=== PATIENT | female | born 1990 | race Caucasian/White ===

== ENCOUNTER 2018-01-18 03:52 | Emergency (ER) | END 2018-01-18 04:22 | disposition home or self-care (01) ==

== ENCOUNTER 2018-06-11 22:59 | Emergency (ER) | payer OTHER ==
[~2018-06-11] VITALS: Ht 160 cm; Wt 113.9 kg
[~2018-06-11 22:59] MED LIST: NPH10OT LEFT EAR
[2018-06-11 23:05] VITALS: BP 134/79; PULSE 83; RESP 18; Ht 160 cm; Wt 113.9 kg
[2018-06-11] MEDS ORDERED: ACET500T98 PO (23:58)
[2018-06-11] MEDS ORDERED: D-ME118S24 PO (23:58)
[2018-06-11] MEDS ORDERED: AMOX1TAB10 PO (23:58)
[2018-06-11] MEDS ORDERED: IBUP-1542 PO (23:58)
--- NOTE | 2018-06-12 00:05 | ERD ---
ER Documentation Chief Complaint Chief Complaint left earache/sore throat x 1 week ROS All systems reviewed and are negative except as per history of present illness. Medications Home Meds Active Scripts D-Methorphan Hb/P-Epd HCl/Bpm (Jblfbhopdo-Leoijdmiuqi-Ft Syr) 118 Ml Syrup, 5 ML PO Q4H PRN for COUGH for 7 Days, #1 BOTTLE Prov:RADHA DE ANDA DO 06/11/18 Amoxicillin/Potassium Clav (Amox-Clav 875-125 mg Tablet) 875-125 mg Tab, 1 TAB PO BID for ear infection for 5 Days, #10 TAB Prov:RADHA DE ANDA DO 06/11/18 Acetaminophen (Acetaminophen) 500 Mg Tablet, 500 MG PO Q6H PRN for pin, #30 TAB Prov:RADHA DE ANDA DO 06/11/18 Ibuprofen* (Motrin*) 600 Mg Tab, 600 MG PO Q6H PRN for PAIN AND OR ELEVATED TEMP, #30 TAB Prov:RADHA DE ANDA DO 06/11/18 Neomycin/Polymyxin/Hydrocort* (Cortisporin* Otic) 10 Ml Susp, 4 DROP LEFT EAR QID for 7 Days, EA Prov:PARVEEN PRICE PA-C 01/18/18 Allergies Allergies: Coded Allergies: No Known Allergy (Unverified , 01/18/18) PMhx/Soc Medical and Surgical Hx: pt denies Medical Hx, pt denies Surgical Hx Hx Alcohol Use: No Hx Substance Use: No Hx Tobacco Use: No Smoking Status: Never smoker Physical Exam Vitals Vital Signs Date Temp Pulse Resp B/P (MAP) Pulse Ox O2 O2 Flow FiO2 Time Delivery Rate 06/11/18 98.2 83 18 134/79 96 23:05 (97) Physical Exam Const: No acute distress Head: Atraumatic Eyes: Normal Conjunctiva ENT: Normal External Ears, Nose and Mouth. Neck: Full range of motion. No meningismus. Resp: Clear to auscultation bilaterally Cardio: Regular rate and rhythm, no murmurs Abd: Soft, non tender, non distended. Normal bowel sounds Skin: No petechiae or rashes Back: No midline or flank tenderness Ext: No cyanosis, or edema Neur: Awake and alert Psych: Normal Mood and Affect Departure Diagnosis: Primary Impression: URI (upper respiratory infection) URI type: unspecified URI Qualified Codes: J06.9 - Acute upper respiratory infection, unspecified Additional Impression: Left ear pain Condition: Fair Patient Instructions: Common Middle Ear Problems, Preventing Common Respiratory Infections Referrals: [facility] YOU HAVE RECEIVED A MEDICAL SCREENING EXAM AND THE RESULTS INDICATE THAT YOU DO NOT HAVE A CONDITION THAT REQUIRES URGENT TREATMENT IN THE EMERGENCY DEPARTMENT. FURTHER EVALUATION AND TREATMENT OF YOUR CONDITION CAN WAIT UNTIL YOU ARE SEEN IN YOUR DOCTORS OFFICE WITHIN THE NEXT 1-2 DAYS. IT IS YOUR RESPONSIBILITY TO MAKE AN APPOINTMENT FOR FOLOW-UP CARE. IF YOU HAVE A PRIMARY DOCTOR --you should call your primary doctor and schedule an appointment IF YOU DO NOT HAVE A PRIMARY DOCTOR YOU CAN CALL OUR PHYSICIAN REFERRAL HOTLINE AT IF YOU CAN NOT AFFORD TO SEE A PHYSICIAN YOU CAN CHOSE FROM THE FOLLOWING [facility] [address] [facility] [facility] [address]. [facility] [address] [address]. [facility] [address] [facility] [address] [facility]. [facility] [address] [facility]. [facility] [address] Additional Instructions: Call your primary care doctor TOMORROW for an appointment during the next 1-2 days.See the doctor sooner or return here if your condition worsens before your appointment time. RADHA DE ANDA DO Jun 12, 2018 00:05
== END 2018-06-12 00:11 | disposition home or self-care (01) ==
LOC: FTE 22:59
DX: H92.02 Otalgia, left ear (principal); J06.9 Acute upper respiratory infection, unspecified
CPT/HCPCS: 99283

== ENCOUNTER 2018-08-03 23:07 | Emergency (ER) | payer OTHER ==
[~2018-08-03] VITALS: Ht 160 cm; Wt 113.0 kg
[~2018-08-03 23:07] MED LIST changes: +ACET500T98 PO; +AMOX1TAB10 PO; +D-ME118S24 PO; +IBUP-1542 PO
[2018-08-03 23:15] VITALS: BP 161/77; PULSE 103; RESP 18; Ht 160 cm; Wt 113.0 kg
[2018-08-03] MEDS ORDERED: KETOROLAC 60 MG INJ IM STA (23:34)
[2018-08-03] MEDS ORDERED: D-ME473S2 PO (23:57)
[2018-08-03] MEDS ORDERED: CETI10TA19 PO (23:57)
[2018-08-03] MEDS ORDERED: IBUP800T48 PO (23:57)
[2018-08-03] MEDS ORDERED: FLUT16SP17 NASAL (23:57)
[2018-08-03] MEDS ORDERED: [UNRECOGNIZED DRUG - CODE] PO (23:57)
[2018-08-04] MEDS ORDERED: GUAIFENESIN LA 600 MG TABSR PO ONE
[2018-08-04] MEDS ORDERED: PROMETHAZINE/CODEINE 5ML CUP PO ONE
[2018-08-04] MEDS ORDERED: DEXAMETHASONE 10 MG/ML 1 ML INJ IM ONE
--- NOTE | 2018-08-04 17:04 | ERD ---
ER Documentation Chief Complaint Chief Complaint ST WITH COUGH AND POST NASAL DRIP [id number] HPI History of Present Illness: 27-year-old female who denies a past medical history coming in today with complaint of sore throat, productive cough with green/white sputum, postnasal drip. Cough symptoms has been present for 5 days, sore throat and postnasal drip have been present for 1 week. Associated symptoms includes a lymph node pain. At home pharmacological/nonpharmacological treatment for symptoms: Sudafed at 5 PM Denies social concerns; Denies recent foreign travel ROS All systems reviewed and are negative except as per history of present illness. Medications Home Meds Active Scripts Dextromethorphan Hb-Promethazine Hcl* (Promethazine DM* Syrup) 473 Ml Syrup, 5 ML PO Q6 PRN for COUGH, #120 ML Prov:RICHAR HERNANDEZ NP 08/03/18 Guaifenesin (Guaifenesin) 1,200 Mg Tab.er.12h, 1200 MG PO BID PRN for MUCUS/CHEST CONGESTION for 7 Days, #30 TAB Prov:RICHAR HERNANDEZ NP 08/03/18 Cetirizine Hcl* (Cetirizine Hcl*) 10 Mg Tablet, 10 MG PO DAILY for ALLERGIES/RUNNY NOSE/COUGH, #30 TAB Prov:RICHRA HERNANDEZ NP 08/03/18 Fluticasone Propionate* (Fluticasone Propionate* Nasal) 50 Mcg/Jewell - 16 Gm Jewell.susp, 1 SPRAY NASAL DAILY PRN for NASAL CONGESTION, #1 BOTTLE TO EACH NOSTRIL Prov:RICHAR HERNANDEZ NP 08/03/18 Ibuprofen* (Motrin*) 800 Mg Tab, 800 MG PO Q6H PRN for PAIN AND OR ELEVATED TEMP, #30 TAB Prov:RICHAR HERNANDEZ NP 08/03/18 D-Methorphan Hb/P-Epd HCl/Bpm (Tqlyryutni-Zzylbxyehoj-Ee Syr) 118 Ml Syrup, 5 ML PO Q4H PRN for COUGH for 7 Days, #1 BOTTLE Prov:RADHA DE ANDA DO 06/11/18 Amoxicillin/Potassium Clav (Amox-Clav 875-125 mg Tablet) 875-125 mg Tab, 1 TAB PO BID for ear infection for 5 Days, #10 TAB Prov:RADHA DE ANDA DO 06/11/18 Acetaminophen (Acetaminophen) 500 Mg Tablet, 500 MG PO Q6H PRN for pin, #30 TAB Prov:RADHA DE ANDA DO 06/11/18 Ibuprofen* (Motrin*) 600 Mg Tab, 600 MG PO Q6H PRN for PAIN AND OR ELEVATED TEMP, #30 TAB Prov:RADHA DE ANDA DO 06/11/18 Neomycin/Polymyxin/Hydrocort* (Cortisporin* Otic) 10 Ml Susp, 4 DROP LEFT EAR QID for 7 Days, EA Prov:PARVEEN PRICE PA-C 01/18/18 Allergies Allergies: Coded Allergies: No Known Allergy (Unverified , 01/18/18) PMhx/Soc Medical and Surgical Hx: pt denies Medical Hx, pt denies Surgical Hx Hx Alcohol Use: No Hx Substance Use: No Hx Tobacco Use: No Smoking Status: Never smoker FmHx Family History: diabetes Physical Exam Vitals Vital Signs Date Temp Pulse Resp B/P (MAP) Pulse Ox O2 O2 Flow FiO2 Time Delivery Rate 08/03/18 98.1 103 18 161/77 99 23:15 (105) Physical Exam Const: No acute distress, afebrile Head: Atraumatic tenderness to palpation to maxillary sinuses, Eyes: Normal Conjunctiva ENT: Normal External Ears, Nose and Mouth. Oropharynx clear without erythema, 2+ tonsils without exudate. Postnasal drainage noted. Neck: Full range of motion. No meningismus. Left cervical lymphadenopathy Resp: Clear to auscultation bilaterally Cardio: Regular rate and rhythm, no murmurs Abd: Soft, non tender, non distended. No guarding, no masses, no rigidity Skin: No petechiae or rashes Back: No midline or flank tenderness Ext: No cyanosis, or edema Neur: Awake and alert x3, speaking in clear sentences, no focal deficits or facial asymmetry Psych: Normal Mood and Affect Results 24 hrs Laboratory Tests Test 08/03/18 23:50 POC Beta HCG, Qualitative NEGATIVE Current Medications Medications Dose Sig/Dwayne Start Time Status Last (Trade) Ordered Route PRN Stop Time Admin Dose Reason Admin 10 mg ONCE ONCE 08/04/18 DC 08/03/18 Dexamethasone IM 00:00 23:58 (Decadron) 08/04/18 00:01 Promethazine 10 ml ONCE ONCE 08/04/18 DC 08/03/18 HCl/ PO 00:00 23:58 Codeine 08/04/18 00:01 (Phenergan/ Codeine) Guaifenesin 1,200 mg ONCE ONCE 08/04/18 DC 08/03/18 (Mucinex) PO 00:00 23:58 08/04/18 00:01 Ketorolac 60 mg ONCE STAT 08/03/18 DC 08/03/18 Tromethamine IM 23:34 23:58 (Toradol) 08/03/18 23:37 Procedures/MDM ED course includes a thorough examination and history. Medications: Dexamethasone, ketorolac, promethazine/codeine, guaifenesin Imaging: Labs: Urine Low suspicion for life-threatening medical emergency. Low suspicion for infectious process that requires antibiotics at this time. Patient is afebrile without antipyretics. In the event of acute sinusitis, symptoms have been not present for 10 days to have a suspicion for bacterial sinusitis. Otherwise healthy patient presenting with constellation of symptoms likely representing uncomplicated maxillary sinusitis, viral syndrome as characterized by history, physical exam findings lab findings. Urine negative Patient reassessment 0000: Patient medicated as ordered. Patient hemodynamically stable. No respiratory distress, otherwise relatively well appearing and nontoxic. Disposition given. Patient educated on diagnoses, prescriptions, follow-up care, return precautions. Strict return precautions given for worsening condition; questions answered discharge. Patient verbalizes understanding of plan of care as well as follow-up and return precautions. Disposition for discharge with followup in 2 days with PCP/clinic. Departure Diagnosis: Primary Impression: Maxillary sinusitis, acute Recurrence: not specified as recurrent Qualified Codes: J01.00 - Acute maxillary sinusitis, unspecified Additional Impression: Viral syndrome Condition: Stable Patient Instructions: Sinusitis, No Abx, Viral Syndrome (Adult) Referrals: COMMUNITY CLINICS YOU HAVE RECEIVED A MEDICAL SCREENING EXAM AND THE RESULTS INDICATE THAT YOU DO NOT HAVE A CONDITION THAT REQUIRES URGENT TREATMENT IN THE EMERGENCY DEPARTMENT. FURTHER EVALUATION AND TREATMENT OF YOUR CONDITION CAN WAIT UNTIL YOU ARE SEEN IN YOUR DOCTORS OFFICE WITHIN THE NEXT 1-2 DAYS. IT IS YOUR RESPONSIBILITY TO MAKE AN APPOINTMENT FOR FOLOW-UP CARE. IF YOU HAVE A PRIMARY DOCTOR --you should call your primary doctor and schedule an appointment IF YOU DO NOT HAVE A PRIMARY DOCTOR YOU CAN CALL OUR PHYSICIAN REFERRAL HOTLINE AT IF YOU CAN NOT AFFORD TO SEE A PHYSICIAN YOU CAN CHOSE FROM THE FOLLOWING COMMUNITY CLINICS [facility] [address] [facility] [address] [facility] [address] [facility] [address] [facility]. [facility] [address] [facility]. [facility] [address] [facility]. [facility] YOU HAVE RECEIVED A MEDICAL SCREENING EXAM AND THE RESULTS INDICATE THAT YOU DO NOT HAVE A CONDITION THAT REQUIRES URGENT TREATMENT IN THE EMERGENCY DEPARTMENT. FURTHER EVALUATION AND TREATMENT OF YOUR CONDITION CAN WAIT UNTIL YOU ARE SEEN IN YOUR DOCTORS OFFICE WITHIN THE NEXT 1-2 DAYS. IT IS YOUR RESPONSIBILITY TO MAKE AN APPOINTMENT FOR FOLOW-UP CARE. IF YOU HAVE A PRIMARY DOCTOR --you should call your primary doctor and schedule and appointment IF YOU DO NOT HAVE A PRIMARY DOCTOR YOU CAN CALL OUR PHYSICIAN REFERRAL HOTLINE AT . IF YOU CAN NOT AFFORD TO SEE A PHYSICIAN YOU CAN CHOSE FROM THE FOLLOWING [facility] INSTITUTIONS: [facility] [address] [place] [address] [facility] [address] [place] [address] [facility] [address] [place] [address] Additional Instructions: Thank you very much for allowing us to participate in your care. Your health and safety is our top priority at [facility]. It is important to read all discharge instructions and education provided in your discharge packet. Call your primary care doctor TOMORROW for an appointment during the next 2-4 days and bring all the information and medications prescribed. Have prescriptions filled and follow precisely the directions on the label. -Cetirizine as an antihistamine that should not cause drowsiness; take this medication every day for allergy-like symptoms/cough/runny nose. -Ibuprofen is a medication that will help with pain/inflammation. At the dosage of 600 to 800 mg, this will help with inflammation/swelling. Take this medication as prescribed. -Fluticasone Is a Steroid Nose Jewell for the Nose; Use This Every Day for Stuffy Nose/Nasal Congestion. -Guaifenesin is a mucolytic. This medication will help loosen secretions and cough them up. -Dextromethorphan/promethazine is a cough suppressant as well as antihistamine. Take this medication as needed for cough and allergy-like symptoms including postnasal drip (clearing of throat) and runny nose. This medication may cause drowsiness. If the symptoms get worse and your provider is unavailable, return to the Emergency Department immediately. RICHAR HERNANDEZ NP Aug 04, 2018 17:04
== END 2018-08-04 00:05 | disposition home or self-care (01) ==
LOC: FTE 23:07
DX: J01.00 Acute maxillary sinusitis, unspecified (principal); B34.9 Viral infection, unspecified
CPT/HCPCS: 81025; 96372; J1100; J1885; Z7502; Z7610

== ENCOUNTER 2018-09-16 17:42 | Emergency (ER) | payer OTHER ==
[~2018-09-16] VITALS: Ht 160 cm; Wt 111.7 kg
[~2018-09-16 17:42] MED LIST changes: +BEN25 PO; +CETI10TA19 PO; +D-ME473S2 PO; +FLUT16SP17 NASAL; +IBUP800T48 PO; +LORA-441 PO; +NPH10OT RIGHT EAR; +PRED20TA PO; +[UNRECOGNIZED DRUG - CODE] PO
[2018-09-16 17:44] VITALS: Ht 160 cm; Wt 111.7 kg
[2018-09-16] MEDS ORDERED: LORAZEPAM 2 MG INJ IM ONE (18:30)
--- NOTE | 2018-09-16 18:31 | ERD ---
ER Documentation Chief Complaint Chief Complaint anxiety/panic attack HPI Patient is a 28 years old female with past medical history of anxiety presenting to the clinic for sudden onset panic attack that started 1 hour ago. Patient admits to recent stress that has accumulated and is now experiencing palpitation, shortness of breath, difficulty breathing, twitching of the eyes, and a sensation of grave danger. Patient admits that she has fell out of healthcare since 1 year ago when her insurance switched. Reports she has not been on Valium for over a year without any issues. Patient reports her new insurance kicked in and is waiting for a PCP appointment. ROS All systems reviewed and are negative except as per history of present illness. Medications Home Meds Active Scripts Lorazepam* (Ativan*) 0.5 Mg Tablet, 0.5 MG PO Q8H PRN for ANXIETY, #6 TAB Prov:TIP MONTELONGO PA-C 09/16/18 Dextromethorphan Hb-Promethazine Hcl* (Promethazine DM* Syrup) 473 Ml Syrup, 5 ML PO Q6 PRN for COUGH, #120 ML Prov:RICHAR HERNANDEZ NP 08/03/18 Guaifenesin (Guaifenesin) 1,200 Mg Tab.er.12h, 1200 MG PO BID PRN for MUCU S/CHEST CONGESTION for 7 Days, #30 TAB Prov:RICHAR HERNANDEZ NP 08/03/18 Cetirizine Hcl* (Cetirizine Hcl*) 10 Mg Tablet, 10 MG PO DAILY for ALLERGIES/RUNNY NOSE/COUGH, #30 TAB Prov:RICHAR HERNANDEZ NP 08/03/18 Fluticasone Propionate* (Fluticasone Propionate* Nasal) 50 Mcg/Babb - 16 Gm Babb.susp, 1 SPRAY NASAL DAILY PRN for NASAL CONGESTION, #1 BOTTLE TO EACH NOSTRIL Prov:RICHAR HERNANDEZ NP 08/03/18 Ibuprofen* (Motrin*) 800 Mg Tab, 800 MG PO Q6H PRN for PAIN AND OR ELEVATED TEMP, #30 TAB Prov:RICHAR HERNANDEZ NP 08/03/18 D-Methorphan Hb/P-Epd HCl/Bpm (Uhqzgscpvq-Obumbdylpia-Gv Syr) 118 Ml Syrup, 5 ML PO Q4H PRN for COUGH for 7 Days, #1 BOTTLE Prov:RADHA DE ANDA DO 06/11/18 Amoxicillin/Potassium Clav (Amox-Clav 875-125 mg Tablet) 875-125 mg Tab, 1 TAB PO BID for ear infection for 5 Days, #10 TAB Prov:RADHA DE ANDA DO 06/11/18 Acetaminophen (Acetaminophen) 500 Mg Tablet, 500 MG PO Q6H PRN for pin, #30 TAB Prov:RADHA DE ANDA DO 06/11/18 Ibuprofen* (Motrin*) 600 Mg Tab, 600 MG PO Q6H PRN for PAIN AND OR ELEVATED TEMP, #30 TAB Prov:RADHA DE ANDA DO 06/11/18 Neomycin/Polymyxin/Hydrocort* (Cortisporin* Otic) 10 Ml Susp, 4 DROP LEFT EAR QID for 7 Days, EA Prov:PARVEEN PRICE PA-C 01/18/18 Allergies Allergies: Coded Allergies: No Known Allergy (Unverified , 01/18/18) PMhx/Soc History of Surgery: No Anesthesia Reaction: No Hx Neurological Disorder: No Hx Respiratory Disorders: No Hx Cardiac Disorders: No Hx Psychiatric Problems: No Hx Miscellaneous Medical Probl: No Hx Alcohol Use: No Hx Substance Use: No Hx Tobacco Use: No FmHx Family History: diabetes Physical Exam Vitals Vital Signs Date Temp Pulse Resp B/P (MAP) Pulse Ox O2 O2 Flow FiO2 Time Delivery Rate 09/16/18 98.3 102 22 145/79 98 17:44 (101) Physical Exam Const: Patient is a mild distress crying. Head: Atraumatic Eyes: Normal Conjunctiva Resp: Clear to auscultation bilaterally Cardio: Regular rate and rhythm, no murmurs Psych: Normal Mood and Affect Results 24 hrs Current Medications Medications Dose Sig/Dwayne Start Time Status Last (Trade) Ordered Route PRN Stop Time Admin Dose Reason Admin Lorazepam 0.5 mg ONCE ONCE 09/16/18 DC 09/16/18 (Ativan) IM 18:30 18:30 09/16/18 18:31 Procedures/MDM Patient was seen and evaluated for anxiety without complications. Patient has an unremarkable physical exam. Low suspicion of pneumonia; no imaging required for today's visit. Patient was given Ativan 0.5mg IM in ED with significant improve ment of symptoms. Post Ativan administration, patient was calm and collective. EKG: Rate/Rhythm: Normal Sinus Rhythm QRS, ST, T-waves: No changes consistent w/ acute ischemia Impression: No evidence of ischemia or arrhythmia Patient stable ready for discharge. Patient was advised to follow-up with her PCP for further evaluation. Departure Diagnosis: Primary Impression: Anxiety attack Condition: Stable Patient Instructions: Panic Attack Referrals: [facility] Additional Instructions: Patient advised to return to the ED immediately for new or worsening symptoms. Patient advised to follow up with primary care provider in the next 24-48 hours. Patient verbalized understanding and agrees with treatment plan and course of action. If patient has no primary care they may follow up with [facility] + [facility] [address] [place] [id number] or [facility] [address] [place] [address] or [facility] [address] [place] [address] TIP MONTELONGO PA-C Sep 16, 2018 18:31
[2018-09-16 19:06] VITALS: BP 117/78; PULSE 95; RESP 18
== END 2018-09-16 19:07 | disposition home or self-care (01) ==
LOC: FTE 17:42
DX: F41.9 Anxiety disorder, unspecified (principal); R00.2 Palpitations
CPT/HCPCS: 93005; J2060; 96372

== ENCOUNTER 2018-10-02 23:07 | Emergency (ER) | payer OTHER ==
[~2018-10-02] VITALS: Ht 160 cm; Wt 111.7 kg
[~2018-10-02 23:07] MED LIST changes: +HYDR-3029 PO; +TRIA60LO10 TOP
[2018-10-02 23:10] VITALS: Ht 160 cm; Wt 111.7 kg
[2018-10-03] MEDS ORDERED: predniSONE 20 MG TAB PO ONE
[2018-10-03 00:21] VITALS: BP 113/78; PULSE 78; RESP 16
== END 2018-10-03 00:22 | disposition home or self-care (01) ==
LOC: FTE 23:07
DX: R21 Rash and other nonspecific skin eruption (principal)
CPT/HCPCS: 99283; J7512

== ENCOUNTER 2018-10-07 09:29 | Emergency (ER) | payer OTHER ==
[~2018-10-07] VITALS: Ht 165.1 cm; Wt 110.7 kg
[~2018-10-07 09:29] MED LIST changes: -HYDR-3029 PO; -TRIA60LO10 TOP
[2018-10-07 09:32] VITALS: BP 126/75; PULSE 91; RESP 20; Ht 165.1 cm; Wt 110.7 kg
[2018-10-07] MEDS ORDERED: IBUPROFEN 600 MG TAB PO ONE (10:00)
--- NOTE | 2018-10-07 10:12 | ERD ---
ER Documentation Chief Complaint Chief Complaint sharp right ear pain x1 days HPI This is a 28-year-old female presents to the ED complaining of sharp right ear pain since yesterday. Pain has been getting progressively worse and is nonradiating towards the right side of her face. Reports associated muffled hearing. No trauma. No discharge. No fevers or chills. No recent swimming. She states she has a history of recurrent otitis externa which she was last treated for approximately 4 months ago. No significant past medical history. ROS All systems reviewed and are negative except as per history of present illness. Medications Home Meds Active Scripts Neomycin/Polymyxin/Hydrocort* (Cortisporin* Otic) 10 Ml Susp, 4 DROP RIGHT EAR QID for 10 Days, #1 EA Prov:KITTY MARINO PA-C 10/07/18 Ibuprofen* (Motrin*) 600 Mg Tab, 600 MG PO Q6H PRN for PAIN AND OR ELEVATED TEMP, #30 TAB Prov:KITTY MARINO PA-C 10/07/18 Diphenhydramine Hcl* (Benadryl*) 25 Mg Cap, 25 MG PO Q6 PRN for ITCHING/RASH, #30 TAB Prov:CASS HOFFMAN PA-C 10/02/18 Prednisone* (Prednisone*) 20 Mg Tab, 60 MG PO DAILY for 5 Days, TAB Prov:CASS HOFFMAN PA-C 10/02/18 Lorazepam* (Ativan*) 0.5 Mg Tablet, 0.5 MG PO Q8H PRN for ANXIETY, #6 TAB Prov:TIP MONTELONGO PA-C 09/16/18 Dextromethorphan Hb-Promethazine Hcl* (Promethazine DM* Syrup) 473 Ml Syrup, 5 ML PO Q6 PRN for COUGH, #120 ML Prov:RICHAR HERNANDEZ NP 08/03/18 Guaifenesin (Guaifenesin) 1,200 Mg Tab.er.12h, 1200 MG PO BID PRN for MUCUS/CHEST CONGESTION for 7 Days, #30 TAB Prov:RICHAR HERNANDEZ NP 08/03/18 Cetirizine Hcl* (Cetirizine Hcl*) 10 Mg Tablet, 10 MG PO DAILY for ALLERGIES/ RUNNY NOSE/COUGH, #30 TAB Prov:RICHAR HERNANDEZ V [employer] OPERATOR 08/03/18 Fluticasone Propionate* (Fluticasone Propionate* Nasal) 50 Mcg/[place] - 16 Gm [place].susp, 1 SPRAY NASAL DAILY PRN for NASAL CONGESTION, #1 BOTTLE TO EACH NOSTRIL Prov:RICHAR HERNANDEZ V [employer] KIL[employer] OPERATOR 08/03/18 Ibuprofen* (Motrin*) 800 Mg Tab, 800 MG PO Q6H PRN for PAIN AND OR ELEVATED TEMP, #30 TAB Prov:RICHAR HERNANDEZ V LIME SLUDGE KILN OPERATOR 08/03/18 D-Methorphan Hb/P-Epd HCl/Bpm (Fdvnwxauth-Kpfdjiilhjc-Sy Syr) 118 Ml Syrup, 5 ML PO Q4H PRN for COUGH for 7 Days, #1 BOTTLE Prov:RADHA DE ANDA 06/11/18 Amoxicillin/Potassium Clav (Amox-Clav 875-125 mg Tablet) 875-125 mg Tab, 1 TAB PO BID for ear infection for 5 Days, #10 TAB Prov:ADILSONRADHA 06/11/18 Acetaminophen (Acetaminophen) 500 Mg Tablet, 500 MG PO Q6H PRN for pin, #30 TAB Prov:RADHA DE ANDA 06/11/18 Ibuprofen* (Motrin*) 600 Mg Tab, 600 MG PO Q6H PRN for PAIN AND OR ELEVATED TEMP, #30 TAB Prov:RADHA DE ANDA 06/11/18 Neomycin/Polymyxin/Hydrocort* (Cortisporin* Otic) 10 Ml Susp, 4 DROP LEFT EAR QID for 7 Days, EA Prov:PARVEEN PRICE PA-C 01/18/18 Allergies Allergies: Coded Allergies: hydroxychloroquine (Unverified Allergy, Unknown, 10/07/18) PMhx/Soc Medical and Surgical Hx: pt denies Surgical Hx History of Surgery: No Anesthesia Reaction: No Hx Neurological Disorder: No Hx Respiratory Disorders: No Hx Cardiac Disorders: No Hx Psychiatric Problems: Yes (Anxiety, depression) Hx Miscellaneous Medical Probl: No Hx Alcohol Use: No Hx Substance Use: No Hx Tobacco Use: No Smoking Status: Never smoker Physical Exam Vitals Vital Signs Date Temp Pulse Resp B/P (MAP) Pulse Ox O2 O2 Flow FiO2 Time Delivery Rate 10/07/18 97.1 91 20 126/75 97 09:32 (92) Physical Exam Const: No acute distress Head: Atraumatic Eyes: Normal Conjunctiva ENT: + Right external auditory canal edematous and erythematous, pain with mid ablation of the pinna. No mastoid tenderness. TM nonerythematous and nonbulging with good cone of light reflex, no perforation visualized. Left TM and external auditory canal normal. Neck: Full range of motion. No meningismus. Neur: Awake and alert Psych: Normal Mood and Affect Results 24 hrs Current Medications Medications Dose Sig/Dwayne Start Time Status Last (Trade) Ordered Route PRN Stop Time Admin Dose Reason Admin Ibuprofen 600 mg ONCE ONCE 10/07/18 DC (Motrin) PO 10:00 10/07/18 10:01 Procedures/MDM ED COURSE: The patient was given ibuprofen 600 mg The medication was well tolerated and the patient had market improvement in symptoms. The patient remained stable throughout ED course. MEDICAL DECISION MAKIN-year-old otherwise healthy female presents with sharp right ear pain. Physical exam is consistent with acute otitis externa. There is no evidence of malignant malignant otitis externa, TM perforation, otitis media, mastoiditis or meningitis at this time. Patient will be discharged home with pain medicines and topical antibiotics. Recommended primary care follow-up in 1 week, strict return precautions were discussed. PRESCRIPTIONS: Ibuprofen, Cortisporin drops. SPECIALIST FOLLOW UP RECOMMENDED: None Departure Diagnosis: Primary Impression: Otitis externa Otitis externa type: unspecified type Chronicity: acute Laterality: right Qualified Codes: H60.501 - Unspecified acute noninfective otitis externa, right ear Condition: Stable Patient Instructions: External Ear Infection (Adult) Referrals: [facility] YOU HAVE RECEIVED A MEDICAL SCREENING EXAM AND THE RESULTS INDICATE THAT YOU DO NOT HAVE A CONDITION THAT REQUIRES URGENT TREATMENT IN THE EMERGENCY DEPARTMENT. FURTHER EVALUATION AND TREATMENT OF YOUR CONDITION CAN WAIT UNTIL YOU ARE SEEN IN YOUR DOCTORS OFFICE WITHIN THE NEXT 1-2 DAYS. IT IS YOUR RESPONSIBILITY TO MAKE AN APPOINTMENT FOR FOLOW-UP CARE. IF YOU HAVE A PRIMARY DOCTOR --you should call your primary doctor and schedule an appointment IF YOU DO NOT HAVE A PRIMARY DOCTOR YOU CAN CALL OUR PHYSICIAN REFERRAL HOTLINE AT IF YOU CAN NOT AFFORD TO SEE A PHYSICIAN YOU CAN CHOSE FROM THE FOLLOWING [facility] CLINICS [facility] [address] [facility]. [facility] [address] [facility] [address] [facility] [address] [facility] [address] [facility] [address] [facility]. [facility] [address] [facility]. [facility] YOU HAVE RECEIVED A MEDICAL SCREENING EXAM AND THE RESULTS INDICATE THAT YOU DO NOT HAVE A CONDITION THAT REQUIRES URGENT TREATMENT IN THE EMERGENCY DEPARTMENT. FURTHER EVALUATION AND TREATMENT OF YOUR CONDITION CAN WAIT UNTIL YOU ARE SEEN I N YOUR DOCTORS OFFICE WITHIN THE NEXT 1-2 DAYS. IT IS YOUR RESPONSIBILITY TO MAKE AN APPOINTMENT FOR FOLOW-UP CARE. IF YOU HAVE A PRIMARY DOCTOR --you should call your primary doctor and schedule and appointment IF YOU DO NOT HAVE A PRIMARY DOCTOR YOU CAN CALL OUR PHYSICIAN REFERRAL HOTLINE AT . IF YOU CAN NOT AFFORD TO SEE A PHYSICIAN YOU CAN CHOSE FROM THE FOLLOWING [facility] INSTITUTIONS[facility] [address] [place] [address] [facility] [address] [place] [address] [facility] + [facility] [address] [place] [address] Additional Instructions: Call your primary care doctor TOMORROW for an appointment during the next 2-4 days and bring all the information and medications prescribed. If the symptoms get worse and your provider is unavailable, return to the Emergency Department immediately. KITTY MARINO PA-C Oct 07, 2018 10:12
== END 2018-10-07 10:10 | disposition home or self-care (01) ==
LOC: FTE 09:29
DX: H60.501 Unspecified acute noninfective otitis externa, right ear (principal)
CPT/HCPCS: Z7502; Z7610; 99282

== ENCOUNTER 2018-10-21 08:47 | Emergency (ER) | payer OTHER ==
[~2018-10-21] VITALS: Ht 160 cm; Wt 110.4 kg
[~2018-10-21 08:47] MED LIST changes: +HYDR-3029 PO; +TRIA60LO10 TOP
[2018-10-21 08:51] VITALS: BP 118/82; PULSE 99; RESP 16; Ht 160 cm; Wt 110.4 kg
== END 2018-10-21 09:19 | disposition home or self-care (01) ==
LOC: FTE 08:47
DX: L29.9 Pruritus, unspecified (principal)
CPT/HCPCS: 99283